=== PATIENT | male | born 1955 | race Caucasian/White ===

== ENCOUNTER 2018-08-02 14:39 | Emergency (ER) | payer OTHER ==
[~2018-08-02] VITALS: Ht 157.5 cm; Wt 108.0 kg
[~2018-08-02 14:39] MED LIST: AMLO-147 PO; ASPI-903 PO; ATOR10TA65 PO; GLIM4TAB PO; HYDR15SO8 PO; HYG50 PO; LOSA50TA14 PO; METF-849 PO; OMEP20CA16 PO
[2018-08-02 14:42] VITALS: Ht 157.5 cm; Wt 108.0 kg
[2018-08-02] MEDS ORDERED: HYDROCODONE/APAP (5/325) TAB PO ONE (16:30)
[2018-08-02] MEDS ORDERED: LIDOCAINE 1% (MPF) 5 ML VIAL INFIL ONE (16:30)
[2018-08-02] MEDS ORDERED: SULF1TAB31 PO (18:27)
--- NOTE | 2018-08-02 18:31 | ERD ---
ER Documentation Chief Complaint Chief Complaint pt bib self with c/o abscess x 3 days HPI 64yo male with history of diabetes, HTN, hypothyroidism presents for wound in buttock area x3 days. He thinks it may be an abscess. He has had history of abscess a long time ago and had incision and drainage done. He states that he has 8 out of 10 pain. Pain is nonradiating. Described as a burning sensation. Denies fevers or chills. No treatments tried at home. ROS All systems reviewed and are negative except as per history of present illness. Medications Home Meds Active Scripts Acetaminophen* (Acetaminophen*) 500 MG Extra Strength Tablet, 500 MG PO Q4H PRN for PAIN AND OR ELEVATED TEMP, #30 TAB Prov:RAS BERRIOS DO 08/02/18 Sulfamethoxazole/Trimethoprim* (Bactrim Ds* Tablet) 1 Each Tablet, 1 TAB PO BID for skin infection for 5 Days, #10 TAB Prov:RAS BERRIOS DO 08/02/18 Hydrocodone Bit-Acetaminophen* (Lortab* Liq) 7.5 Mg-325 Mg/15 Ml Solution, 15 ML PO Q6H PRN for COUGH, #120 ML Prov:GENEVA GALARZA DO 04/10/16 Reported Medications Losartan Potassium* (Losartan Potassium*) 50 Mg Tablet, 50 MG PO DAILY, TAB 04/10/16 Atorvastatin Calcium (Atorvastatin Calcium) 10 Mg Tablet, 10 MG PO DAILY, #30 TAB 04/10/16 Omeprazole* (Omeprazole*) 20 Mg Capsule.dr, 20 MG PO DAILY, #30 CAP 02/01/16 Aspirin* (Aspirin* Chew) 81 Mg Tab.chew, 81 MG PO DAILY, TAB.CHEW 02/01/16 Amlodipine Besylate* (Amlodipine Besylate*) 10 Mg Tablet, 10 MG PO DAILY, #30 TAB 02/01/16 Chlorthalidone* (Chlorthalidone*) 50 Mg Tablet, 50 MG PO DAILY, TAB 02/01/16 Glimepiride* (Glimepiride*) 4 Mg Tablet, 4 MG PO WITH BREAKFAST DINNE, TAB 02/01/16 Metformin* (Glucophage*) 500 Mg Tab, 500 MG PO WITH BREAKFAST DINNE, #30 TAB 02/01/16 Allergies Allergies: Coded Allergies: Penicillins (Verified Allergy, Unknown, 12/19/16) PMhx/Soc History of Surgery: No Anesthesia Reaction: No Hx Neurological Disorder: No Hx Respiratory Disorders: No Hx Psychiatric Problems: No Hx Miscellaneous Medical Probl: Yes (DIABETES & OBESITY) Hx Alcohol Use: No Hx Substance Use: No Hx Tobacco Use: No Smoking Status: Never smoker Physical Exam Vitals Vital Signs Date Temp Pulse Resp B/P (MAP) Pulse Ox O2 O2 Flow FiO2 Time Delivery Rate 08/02/18 98.3 96 18 125/75 98 14:42 (92) Physical Exam Const: No acute distress Resp: Clear to auscultation bilaterally Cardio: Regular rate and rhythm, no murmurs Skin: Left buttock nodule about 1 cm noted, there is mild erythema with some fluctuance underlying the skin. Ext: No cyanosis, or edema Neur: Awake and alert Psych: Normal Mood and Affect Results 24 hrs Current Medications Medications Dose Sig/Mary Start Time Status Last (Trade) Ordered Route PRN Stop Time Admin Dose Reason Admin 1 tab ONCE ONCE 08/02/18 DC 08/02/18 Acetaminophen PO 16:30 16:43 / 08/02/18 16:31 Hydrocodone Bitart ([place] (5/325)) Lidocaine 5 ml ONCE ONCE 08/02/18 DC (Xylocaine INFIL 16:30 1% (Mpf)) 08/02/18 16:31 Procedures/MDM Abscess Incision and Drainage with irrigation by me: Location: Left buttock, perirectal area Anesthesia: [Local 1% Lidocaine without epinephrine] Technique: [Irrigated. Disrupted loculations w/ instrumentation] Packing: [None] Complications: [Neurovascularly intact post procedure] 48 hour wound check. Scar minimization instructions given. Patient's skin symptoms have stabilized while they have been evaluated in the department and are appropriate for outpatient care and work up. Exam and w/u not consistent w/ sepsis, deep space infection, or foreign body. Medical Decision Making: Physical examination consistent with a left buttock, perirectal abscess about 1 cm There is underlying fluctuance and erythema. Incision and drainage was done, see procedure note above Given patient's history of diabetes, decision was made to treat with antibiotics. Prescription(s): Patient given prescription for supportive medication(s) and Bactrim Patient advised to return to the ER in 48 hours for wound check. Advised regarding sitz bath for the next 5 days. Patient advised to follow up with PCP in 1-2 days. Patient advised to return to ED for new or worsening symptoms. Patient stable on discharge from the ED. Disclaimer: Inadvertent spelling and grammatical errors are likely due to EHR/dictation software use and do not reflect on the overall quality of patient care. Also, please note that the electronic time recorded on this note does not necessarily reflect the actual time of the patient encounter. Departure Diagnosis: Primary Impression: Abscess Condition: Fair Patient Instructions: Abscess, Incision And Drainage Referrals: WES BAIRD MD (PCP) Additional Instructions: Call your primary care doctor TOMORROW for an appointment during the next 1-2 days.See the doctor sooner or return here if your condition worsens before your appointment time. Buttock/emily-rectal abscess incision and drainage done recommend sitz bath twice daily for 5 days take antibiotics as prescribed return in ED in 2 days for wound check RAS BERRIOS DO Aug 02, 2018 18:31
[2018-08-02] MEDS ORDERED: ACET-141 PO (18:32)
[2018-08-02 18:46] VITALS: BP 143/96; PULSE 89; RESP 16
== END 2018-08-02 18:47 | disposition home or self-care (01) ==
LOC: EDBD 14:39 → FTE 14:39
DX: L02.31 Cutaneous abscess of buttock (principal); E11.9 Type 2 diabetes mellitus without complications; I10 Essential (primary) hypertension; E03.9 Hypothyroidism, unspecified; E66.9 Obesity, unspecified; Z68.41 Body mass index [BMI] 40.0-44.9, adult; Z79.82 Long term (current) use of aspirin; Z79.84 Long term (current) use of oral hypoglycemic drugs